=== PATIENT | male | born 1995 | race African-American/Black ===

== ENCOUNTER 2018-04-28 15:40 | Inpatient (IN) | payer MEDICAID ==
[~2018-04-28] VITALS: Ht 170.2 cm; Wt 52.2 kg
[2018-04-28 17:16] LABS: Basophils # (auto) 0 uL; Basophils % (auto) 0.6 % (0.0-2.0); Eosinophils # (auto) 0.2 uL; Eosinophils % (auto) 5.1 % (0.0-7.0); Hematocrit 36.8 % (41.0-53.0); Hemoglobin 12.3 g/dL (13.5-17.5); Lymphocytes # (auto) 1.9 uL; Lymphocytes % (auto) 42.9 % (10.0-50.0); Mean Corpuscular Hgb Conc. 33.6 g/dL (32.0-36.0); Mean Corpuscular Volume 89.5 fL (80.0-100.0); Monocytes # (auto) 0.3 uL; Monocytes % (auto) 7.2 % (0.0-12.0); Neutrophils % (auto) 44.2 % (37.0-80.0); Nucleated Red Blood Cells % 0.2 %; Platelet Count (auto) 275 10^3/uL (140-450); Red Blood Cells 4.11 10^6/uL (4.5-5.90); White Blood Cell 4.5 10^3/uL (4.4-10.8)
[2018-04-28 17:18] LABS: BUN/Creatinine Ratio 25.7; Calcium 7.9 mg/dL (8.5-10.1); Potassium 3.7 mmol/L (3.5-5.1)
[2018-04-28 17:20] LABS: Bilirubin, Total 0.5 mg/dL (0.2-1.0); Total Protein 6.7 g/dL (6.4-8.2)
[2018-04-28] MEDS ORDERED: ONDANSETRON HCL 4 MG/2 ML VIAL IV ONE ×2 (18:00→22:45)
[2018-04-28] MEDS ORDERED: MORPHINE SULF INJ 2 MG/ML SYRINGE 1ML IV ONE ×2 (18:00→22:45)
[2018-04-28] MEDS ORDERED: SODIUM CHLORIDE 0.9% 1,000 ML IV SCH (19:39)
[2018-04-28] MEDS ORDERED: ONDANSETRON HCL 4 MG/2 ML VIAL IV PRN (19:45)
[2018-04-28] MEDS ORDERED: MORPHINE SULF INJ 2 MG/ML SYRINGE 1ML IV PRN ×2 (19:45)
[2018-04-28] MEDS ORDERED: LORazepam 0.5 MG TAB PO PRN (19:45)
[2018-04-28] MEDS ORDERED: TEMAZEPAM 15 MG CAP PO PRN (19:45)
[2018-04-28] MEDS ORDERED: traMADol HCL 50 MG TAB PO PRN (19:45)
[2018-04-28] MEDS ORDERED: ACETAMINOPHEN 500 MG TAB PO PRN (19:45)
[2018-04-28] MEDS ORDERED: PROPOFOL 10 MG/ML 20 ML IV ONE ×2 (19:45→20:15)
[2018-04-28] MEDS ORDERED: NITROGLYCERIN 0.4 MG SL TAB SL PRN (19:45)
[2018-04-28] MEDS ORDERED: PROPOFOL 10 MG/ML 100ML BOTTLE IV ONE ×2 (20:15→20:30)
[2018-04-28 22:51] VITALS: BP 133/68
[2018-04-29] MEDS ORDERED: PANTOPRAZOLE 40 MG TAB PO SCH (10:00)
== END 2018-04-28 23:51 | disposition home or self-care (01) | DRG 342 ==
LOC: ER 15:40 → EDBD 15:40 → TELE 15:41
PROVIDERS: ADMIT Internal Medicine; ATTEND Internal Medicine
DX: S42.332A Displaced oblique fracture of shaft of humerus, left arm, initial encounter for closed fracture (principal); G82.50 Quadriplegia, unspecified; X58.XXXA Exposure to other specified factors, initial encounter; Y93.89 Activity, other specified; Y92.89 Other specified places as the place of occurrence of the external cause; Y99.8 Other external cause status; Z98.2 Presence of cerebrospinal fluid drainage device
CPT/HCPCS: 36415; 73060; 80053; 85025; 96361; 96374; 96375; J2405; J2704

== ENCOUNTER → 2020-04-06 | Emergency (ER) | payer MEDICAID ==
[~2020-04-06] VITALS: Ht 137.2 cm; Wt 45.4 kg
[~2020-04-06] MED LIST: BACL10TA PO; BACLOFEN 10 MG TAB PO ONE; NITR1CAP35 PO; OXYB15TA12 PO
[2020-04-06 20:53] LABS: Basophils # (auto) 0 10 ^3/uL (0-0.2); Basophils % (auto) 0.4 % (0.0-2.0); Eosinophils # (auto) 0.4 10 ^3/uL (0-0.8); Eosinophils % (auto) 8.4 % (0.0-7.0); Hematocrit 33.8 % (41.0-53.0); Hemoglobin 11.6 g/dL (13.5-17.5); Lymphocytes # (auto) 2.3 10 ^3/uL (0.4-5.4); Lymphocytes % (auto) 45.3 % (10.0-50.0); Mean Corpuscular Hemoglobin 30.6 pg (28.0-32.0); Mean Corpuscular Hgb Conc. 34.4 g/dL (32.0-36.0); Monocytes # (auto) 0.3 10 ^3/uL (0-1.3); Monocytes % (auto) 6.2 % (0.0-12.0); Neutrophils % (auto) 39.7 % (37.0-80.0); Nucleated Red Blood Cells % 0.1 %; Platelet Count (auto) 396 10^3/uL (140-450); Red Cell Distribution Width 15.1 % (11.8-14.3); White Blood Cell 5.1 10^3/uL (4.4-10.8)
[2020-04-06 21:04] LABS: INR 1.13 (0.9-1.15)
[2020-04-06 21:08] LABS: Albumin 2.9 g/dL (3.4-5.0); Anion Gap 1 (5-15); Blood Urea Nitrogen 9 mg/dL (7-18); Calcium 7.7 mg/dL (8.5-10.1); Carbon Dioxide 28 mmol/L (21-32); Chloride 109 mmol/L (98-107); Glucose 84 mg/dL (74-106); Magnesium 2.4 mg/dL (1.6-2.6); Potassium 3.8 mmol/L (3.5-5.1); Sodium 138 mmol/L (136-145)
[2020-04-06 21:14] LABS: Alanine Aminotransferase 10 U/L (16-61); Alkaline Phosphatase 44 U/L (45-117); Aspartate Aminotransferase 8 U/L (15-37); Bilirubin, Total 0.4 mg/dL (0.2-1.0); GFR African American 384 mL/min; GFR Non-African American 317 mL/min; Total Protein 6.9 g/dL (6.4-8.2)
[2020-04-07 12:15] VITALS: BP 123/77
== END | disposition home or self-care (01) ==
LOC: EDUNIT# 19:07 → EDBD 19:13 → ER 19:13
DX: T85.610A Breakdown (mechanical) of cranial or spinal infusion catheter, initial encounter (principal); Y83.9 Surgical procedure, unspecified as the cause of abnormal reaction of the patient, or of later complication, without mention of misadventure at the time of the procedure; Y92.89 Other specified places as the place of occurrence of the external cause
CPT/HCPCS: 36415; 80053; 83735; 83880; 84484; 85025; 85610; 85730

== ENCOUNTER 2020-07-25 17:08 | Emergency (ER) | payer MEDICAID ==
[~2020-07-25] VITALS: Ht 175.3 cm; Wt 49.9 kg
[~2020-07-25 17:08] MED LIST changes: -BACLOFEN 10 MG TAB PO ONE
[2020-07-25 17:52] VITALS: BP 87/57
[2020-07-25 21:27] LABS: Urine Bacteria MANY /hpf (None Seen); Urine Blood 3+ /uL (Negative); Urine Mucus FEW (None Seen); Urine Specific Gravity 1.025 (1.001-1.035); Urine WBC 215 /hpf (0 - 3)
[2020-07-25] MEDS ORDERED: cefTRIAXone SOD 1,000 MG VL IM ONE (23:00)
== END 2020-07-26 01:30 | disposition home or self-care (01) ==
LOC: EDBD 17:08 → ER 17:08
DX: T83.510A Infection and inflammatory reaction due to cystostomy catheter, initial encounter (principal); R31.9 Hematuria, unspecified; N39.0 Urinary tract infection, site not specified; Y83.8 Other surgical procedures as the cause of abnormal reaction of the patient, or of later complication, without mention of misadventure at the time of the procedure; Y92.89 Other specified places as the place of occurrence of the external cause
CPT/HCPCS: 51702; 81001